=== PATIENT | male | born 1955 | race American Indian/Alaskan Native ===

== ENCOUNTER 2018-12-25 23:31 | Inpatient (IN) | payer SELFPAY ==
[~2018-12-25] VITALS: Ht 170.2 cm; Wt 120.3 kg
[2018-12-25] MEDS ORDERED: ONDANSETRON HCL 4MG/2ML INJ IV STA (23:36)
[2018-12-25] MEDS ORDERED: SODIUM CHLORIDE 0.9% 1,000 ML IV ONE (23:36)
[2018-12-25] MEDS ORDERED: MORPHINE SULFATE 4 MG/ML CPJ (NOT FOR IM USE) IV STA (23:36)
[2018-12-25] MEDS ORDERED: DILTIAZEM HCL 5MG/ML 5ML VIAL IV ONE (23:45)
[2018-12-26] VITALS (11 sets, daily range): BP systolic 2–140; BP diastolic 45–86
[2018-12-26] MEDS ORDERED: DILTIAZEM HCL 125 MG in DEXT 5% WATER 100 ML IV ONE ×2
[2018-12-26] MEDS ORDERED: DILTIAZEM HCL 5MG/ML 5ML VIAL IV ONE
[2018-12-26] MEDS ORDERED: DILTIAZEM HCL 125 MG in DEXT 5% WATER 100 ML IV NR (00:15)
[2018-12-26 00:28] LABS: CHLORIDE 102 mEq/L (98-107); HEMOGLOBIN. 10.5 g/dL (14.0-18.0); MEAN CORPUSCULAR VOLUME 87.4 fL (80.0-94.0); RED BLOOD CELL COUNT 3.68 mill/uL (4.7-6.1)
[2018-12-26] MEDS ORDERED: CEFTRIAXONE 1 G PREMIX 50 ML IV ONE (00:30)
[2018-12-26] MEDS ORDERED: AZITHROMYCIN 500 MG in DEXT 5% WATER 250 ML IV SCH (00:30)
[2018-12-26 00:31] LABS: INR 1.4; PARTIAL THROMBOPLASTIN TIME 28.2 sec (23.4-31.0); PROTHROMBIN TIME 13.9 sec (9.6-11.0)
[2018-12-26 00:42] LABS: HEMATOCRIT. 32.2 % (42.0-52.0); MEAN CORPUSCULAR HEMOGLOBIN 28.4 pg (28.0-32.0); MEAN PLATELET VOLUME 7.7 fl (7.4-10.4); PLATELET 126 x1000/uL (130-400); RED CELL DISTRIBUTION WIDTH 18.5 % (11.6-14.6)
[2018-12-26 00:49] LABS: PLATELET ESTIMATE NORMAL
[2018-12-26 02:00] LABS: CLARITY URINE CLEAR (CLEAR); COLOR URINE DARK YELLOW (YELLOW); KETONES URINE TRACE (NEGATIVE); LEUKOCYTE ESTERASE URINE NEGATIVE (NEGATIVE); NITRITE URINE NEGATIVE (NEGATIVE); OCCULT BLOOD URINE TRACE (NEGATIVE); PROTEIN URINE 1+ (NEGATIVE); SPECIFIC GRAVITY URINE 1.023 (1.005-1.030)
[2018-12-26] MEDS ORDERED: CLONIDINE 0.1MG TABLET PO PRN (04:45)
[2018-12-26] MEDS ORDERED: LORAZEPAM 2MG/ML CPJ IV PRN (04:45)
[2018-12-26] MEDS ORDERED: HYDRALAZINE 20MG/ML VIAL IV PRN (04:45)
[2018-12-26] MEDS ORDERED: DILTIAZEM HCL 125 MG in DEXT 5% WATER 100 ML IV PRN (04:45)
[2018-12-26] MEDS ORDERED: DIPHENHYDRAMINE 50MG/ML VIAL IV PRN (04:45)
[2018-12-26] MEDS ORDERED: MAGNESIUM/ALUMINUM HYDROXIDE/SIMETHICONE 30ML UDC PO PRN (04:45)
[2018-12-26] MEDS: ONDANSETRON HCL 4MG/2ML INJ IV PRN ×2 (05:07→19:29)
[2018-12-26] MEDS ORDERED: DEXT 5%/0.45% NACL 1000ML 1,000 ML IV SCH (06:00)
[2018-12-26] MEDS ORDERED: FUROSEMIDE 40MG/4ML VIAL IVP SCH (06:00)
[2018-12-26] MEDS ORDERED: ENOXAPARIN 30MG/0.3ML SYR SUBCUT SCH (09:00)
[2018-12-26] MEDS ORDERED: POTASSIUM CHLORIDE 20MEQ TABLET SR PO SCH (09:00)
[2018-12-26] MEDS: FAMOTIDINE 20MG/2ML VIAL IV SCH ×2 (09:33→21:10)
[2018-12-26] MEDS ORDERED: FUROSEMIDE 40MG/4ML VIAL IVP NR (11:00)
[2018-12-26] MEDS ORDERED: POTASSIUM CHLORIDE 20MEQ TABLET SR PO NR (11:00)
[2018-12-26] MEDS ORDERED: ENOXAPARIN 80MG/0.8ML SYR SUBCUT NR (11:00)
[2018-12-26] MEDS: LOSARTAN POTASSIUM 25 MG TABLET PO SCH (11:03)
[2018-12-26] MEDS: DILTIAZEM HCL 90MG TABLET NG SCH ×3 (11:04→23:56)
[2018-12-26 12:44] LABS: *AMPHETAMINES SCREEN URINE NEGATIVE (NEGATIVE); *BARBITURATES SCREEN URINE NEGATIVE (NEGATIVE); *BENZODIAZEPINES SCREEN URINE NEGATIVE (NEGATIVE); *COCAINE SCREEN URINE NEGATIVE (NEGATIVE)
[2018-12-26 12:45] LABS: CANNABINOID URINE SCREEN NEGATIVE (NEGATIVE); METHADONE URINE SCREEN NEGATIVE (NEGATIVE); OPIATES URINE SCREEN NEGATIVE (NEGATIVE); PHENCYCLIDINE URINE SCREEN NEGATIVE (NEGATIVE)
[2018-12-26] MEDS: FUROSEMIDE 40MG/4ML VIAL IVP SCH ×2 (17:19→21:24)
[2018-12-26] MEDS: POTASSIUM CHLORIDE 20MEQ TABLET SR PO SCH (21:09)
[2018-12-26] MEDS: ENOXAPARIN 100MG/ML SYR SUBCUT SCH (21:13)
[2018-12-26] MEDS: ACETAMINOPHEN 325MG TABLET PO PRN (21:34)
[2018-12-26] MEDS: GUAIFENESIN 200MG/10ML SUGAR FREE UDC PO PRN (23:57)
[2018-12-27] VITALS (14 sets, daily range): BP systolic 87–146; BP diastolic 44–70
[2018-12-27 06:00] LABS: CHLORIDE 100 mEq/L (98-107)
[2018-12-27] MEDS: DILTIAZEM HCL 90MG TABLET NG SCH ×4 (06:00→23:47)
[2018-12-27 06:09] LABS: LDL CHOLESTEROL 38 mg/dL (5-100)
[2018-12-27 06:16] LABS: HDL CHOLESTEROL 27 mg/dL (40-59)
[2018-12-27 06:34] LABS: HEMATOCRIT. 28.5 % (42.0-52.0); HEMOGLOBIN. 9.2 g/dL (14.0-18.0); MEAN CORPUSCULAR HEMOGLOBIN 28.5 pg (28.0-32.0); MEAN CORPUSCULAR VOLUME 87.7 fL (80.0-94.0); MEAN PLATELET VOLUME 7.6 fl (7.4-10.4); PLATELET 96 x1000/uL (130-400); RED BLOOD CELL COUNT 3.25 mill/uL (4.7-6.1); RED CELL DISTRIBUTION WIDTH 18.8 % (11.6-14.6)
[2018-12-27] MEDS: FUROSEMIDE 40MG/4ML VIAL IVP SCH ×2 (06:58→18:09)
[2018-12-27] MEDS: ACETAMINOPHEN 325MG TABLET PO PRN (08:36)
[2018-12-27] MEDS: POTASSIUM CHLORIDE 20MEQ TABLET SR PO SCH (08:36)
[2018-12-27] MEDS: FAMOTIDINE 20MG/2ML VIAL IV SCH ×2 (08:37→20:21)
[2018-12-27] MEDS: ENOXAPARIN 100MG/ML SYR SUBCUT SCH ×2 (08:37→20:36)
[2018-12-27] MEDS: LOSARTAN POTASSIUM 25 MG TABLET PO SCH (08:37)
[2018-12-27 10:21] LABS: PLATELET ESTIMATE DECREASED
[2018-12-27] MEDS: GUAIFENESIN 200MG/10ML SUGAR FREE UDC PO PRN ×2 (11:17→22:14)
[2018-12-27] MEDS: SPIRONOLACTONE 25MG TABLET PO SCH (12:32)
[2018-12-27 13:07] LABS: TOTAL IRON BINDING CAPACITY 374 ug/dL (250-450)
[2018-12-27 13:28] LABS: VITAMIN B12 SERUM 639 pg/mL (211-911)
[2018-12-28] VITALS (12 sets, daily range): BP systolic 93–136; BP diastolic 49–82
[2018-12-28] MEDS: HYDROCODONE/ACETAMINOPHEN 5/325MG TABLET PO PRN (04:59)
[2018-12-28] MEDS: DILTIAZEM HCL 90MG TABLET NG SCH ×4 (06:31→23:42)
[2018-12-28] MEDS: FUROSEMIDE 40MG/4ML VIAL IVP SCH ×2 (06:32→17:32)
[2018-12-28] MEDS: POTASSIUM CHLORIDE 20MEQ TABLET SR PO SCH ×3 (08:29→17:32)
[2018-12-28] MEDS: LOSARTAN POTASSIUM 25 MG TABLET PO SCH (08:29)
[2018-12-28] MEDS: SPIRONOLACTONE 25MG TABLET PO SCH (08:33)
[2018-12-28] MEDS: ENOXAPARIN 100MG/ML SYR SUBCUT SCH (08:33)
[2018-12-28] MEDS: FAMOTIDINE 20MG/2ML VIAL IV SCH (08:33)
[2018-12-28] MEDS: GUAIFENESIN 200MG/10ML SUGAR FREE UDC PO PRN ×2 (08:40→23:43)
[2018-12-28] MEDS ORDERED: METOLAZONE 5MG TABLET PO SCH (15:00)
[2018-12-28] MEDS ORDERED: SORBITOL 70% SOLN 30ML PO NR ×2 (16:00→20:00)
[2018-12-28 17:13] LABS: HEMATOCRIT. 29.7 % (42.0-52.0); HEMOGLOBIN. 9.6 g/dL (14.0-18.0); MEAN CORPUSCULAR HEMOGLOBIN 28.3 pg (28.0-32.0); MEAN CORPUSCULAR VOLUME 87.4 fL (80.0-94.0); MEAN PLATELET VOLUME 7.2 fl (7.4-10.4); PLATELET 127 x1000/uL (130-400); RED CELL DISTRIBUTION WIDTH 18.8 % (11.6-14.6)
[2018-12-28 17:18] LABS: CHLORIDE 93 mEq/L (98-107)
[2018-12-28] MEDS: FERROUS SULFATE 325MG TABLET PO SCH (17:32)
[2018-12-28 17:33] LABS: PLATELET ESTIMATE DECREASED
[2018-12-28] MEDS: PANTOPRAZOLE SODIUM 40 MG/VIAL IV SCH (20:30)
[2018-12-28] MEDS: ONDANSETRON HCL 4MG/2ML INJ IV PRN ×2 (21:03→23:42)
[2018-12-29] VITALS (11 sets, daily range): BP systolic 107–145; BP diastolic 51–84
[2018-12-29] MEDS: HYDROCODONE/ACETAMINOPHEN 5/325MG TABLET PO PRN (01:39)
[2018-12-29] MEDS: DILTIAZEM HCL 90MG TABLET NG SCH ×4 (06:21→23:35)
[2018-12-29] MEDS: FUROSEMIDE 40MG/4ML VIAL IVP SCH ×2 (06:21→18:08)
[2018-12-29 06:42] LABS: HEMOGLOBIN. 9.4 g/dL (14.0-18.0); MEAN CORPUSCULAR HEMOGLOBIN 28.9 pg (28.0-32.0); MEAN PLATELET VOLUME 7.1 fl (7.4-10.4); PLATELET 102 x1000/uL (130-400); RED BLOOD CELL COUNT 3.26 mill/uL (4.7-6.1); RED CELL DISTRIBUTION WIDTH 18.2 % (11.6-14.6)
[2018-12-29 06:51] LABS: CHLORIDE 91 mEq/L (98-107)
[2018-12-29] MEDS: FERROUS SULFATE 325MG TABLET PO SCH ×3 (07:03→18:06)
[2018-12-29] MEDS: SPIRONOLACTONE 25MG TABLET PO SCH (08:25)
[2018-12-29] MEDS: LOSARTAN POTASSIUM 25 MG TABLET PO SCH (08:25)
[2018-12-29] MEDS: POTASSIUM CHLORIDE 20MEQ TABLET SR PO SCH ×2 (08:25→18:06)
[2018-12-29] MEDS ORDERED: MAGNESIUM 2 G PREMIX 50 ML IV SCH (09:00)
[2018-12-29] MEDS ORDERED: KCL 20MEQ/100ML PREMIX 100 ML IV SCH (09:00)
[2018-12-29] MEDS ORDERED: METOLAZONE 10MG TABLET PO SCH (09:00)
[2018-12-29 10:01] LABS: INR 1.4; PARTIAL THROMBOPLASTIN TIME 30.6 sec (23.4-31.0); PROTHROMBIN TIME 13.9 sec (9.6-11.0)
[2018-12-29] MEDS: PANTOPRAZOLE SODIUM 40 MG/VIAL IV SCH ×2 (10:01→21:21)
[2018-12-29 12:06] LABS: PLATELET ESTIMATE DECREASED
[2018-12-29] MEDS ORDERED: FENTANYL CITRATE/PF 50MCG/ML 2ML VIAL ONE (15:20)
[2018-12-29] MEDS ORDERED: MIDAZOLAM HCL 5 MG/5 ML VIAL ONE (15:20)
[2018-12-29] MEDS ORDERED: SIMETHICONE 40 MG/0.6 ML 30ML ONE (15:20)
[2018-12-29] MEDS ORDERED: MIDAZOLAM HCL 5 MG/5 ML VIAL IV PRN (15:20)
[2018-12-29] MEDS ORDERED: SODIUM CHLORIDE 0.9% 10ML VIAL ONE (15:20)
[2018-12-29] MEDS ORDERED: FENTANYL CITRATE/PF 50MCG/ML 2ML VIAL IV PRN (15:20)
[2018-12-29 20:46] LABS: HEMATOCRIT. 30.9 % (42.0-52.0); HEMOGLOBIN. 10.2 g/dL (14.0-18.0); MEAN CORPUSCULAR HEMOGLOBIN 28.2 pg (28.0-32.0); MEAN CORPUSCULAR VOLUME 85.7 fL (80.0-94.0); MEAN PLATELET VOLUME 6.8 fl (7.4-10.4); PLATELET 98 x1000/uL (130-400); RED BLOOD CELL COUNT 3.61 mill/uL (4.7-6.1); RED CELL DISTRIBUTION WIDTH 18.3 % (11.6-14.6)
[2018-12-29 21:00] LABS: CHLORIDE 83 mEq/L (98-107)
[2018-12-29 21:05] LABS: PLATELET ESTIMATE DECREASED
[2018-12-29] MEDS: APIXABAN 5 MG TABLET PO SCH (21:21)
[2018-12-29 21:26] LABS: HEPATITIS B SURFACE ANTIGEN NEGATIVE
[2018-12-29 21:56] LABS: HEPATITIS A AB IGM NEGATIVE (NEGATIVE)
[2018-12-30] VITALS (15 sets, daily range): BP systolic 91–149; BP diastolic 43–95
[2018-12-30] MEDS ORDERED: POTASSIUM CHLORIDE 20MEQ/PACKET PO NR
[2018-12-30] MEDS: DILTIAZEM HCL 90MG TABLET NG SCH (06:06)
[2018-12-30 06:49] LABS: HEMATOCRIT. 28.8 % (42.0-52.0); HEMOGLOBIN. 9.5 g/dL (14.0-18.0); MEAN CORPUSCULAR HEMOGLOBIN 28.2 pg (28.0-32.0); MEAN CORPUSCULAR VOLUME 85.4 fL (80.0-94.0); MEAN PLATELET VOLUME 7.1 fl (7.4-10.4); PLATELET 92 x1000/uL (130-400); RED BLOOD CELL COUNT 3.37 mill/uL (4.7-6.1); RED CELL DISTRIBUTION WIDTH 18.4 % (11.6-14.6)
[2018-12-30 07:39] LABS: CHLORIDE 83 mEq/L (98-107)
[2018-12-30] MEDS: LOSARTAN POTASSIUM 25 MG TABLET PO SCH (07:50)
[2018-12-30] MEDS: SPIRONOLACTONE 25MG TABLET PO SCH (07:50)
[2018-12-30] MEDS: POTASSIUM CHLORIDE 20MEQ TABLET SR PO SCH ×2 (07:50→17:15)
[2018-12-30] MEDS: APIXABAN 5 MG TABLET PO SCH (07:50)
[2018-12-30] MEDS: FERROUS SULFATE 325MG TABLET PO SCH ×3 (07:50→17:15)
[2018-12-30 10:00] LABS: PLATELET ESTIMATE DECREASED
[2018-12-30] MEDS ORDERED: MAGNESIUM SULFATE 3 GM in DEXT 5% WATER 96 ML IV SCH (10:00)
[2018-12-30] MEDS: PROPRANOLOL HCL 10MG TABLET PO SCH (10:15)
[2018-12-30 11:13] LABS: BG BASE EXCESS 17.1 mmol/L (-2.0-2.0); BG CARBOXYHEMOGLOBIN 0.9 % (0.5-1.5); BG DEOXYHEMOGLOBIN 5.4 % (0.0-5.0); BG FRACTION INSPIRED OXYGEN 30; BG HCO3 ACT 43.9 mmol/L (22.0-26.0); BG METHEMOGLOBIN 0.3 % (0.0-1.5); BG OXYGEN SATURATION 94.5 % (92.0-98.5); BG OXYHEMOGLOBIN 93.4 % (94.0-97.0); BG PH 7.454 (7.350-7.450); BG PO2 73.2 mmHg (75.0-100.0); BG SAMPLE SITE LEFT BRACHIAL; BG TOTAL HEMOGLOBIN 11.4 g/dL (12.0-18.0); BG VENT MODE NASAL CANNULA
[2018-12-30] MEDS: DILTIAZEM HCL 60MG TABLET NG SCH ×2 (12:00→17:15)
[2018-12-30] MEDS: ONDANSETRON HCL 4MG/2ML INJ IV PRN (15:35)
[2018-12-31] VITALS (9 sets, daily range): BP systolic 89–133; BP diastolic 35–77
[2018-12-31] MEDS: DILTIAZEM HCL 60MG TABLET NG SCH ×3 (00:09→08:39)
[2018-12-31] MEDS: HYDROCODONE/ACETAMINOPHEN 5/325MG TABLET PO PRN (00:16)
[2018-12-31 05:58] LABS: CHLORIDE 87 mEq/L (98-107)
[2018-12-31 06:19] LABS: EOSINOPHILS % 9.2 % (0.0-5.0); HEMOGLOBIN. 9.9 g/dL (14.0-18.0); LYMPHOCYTES % 35.7 % (20.0-50.0); MEAN CORPUSCULAR HEMOGLOBIN 28.3 pg (28.0-32.0); MEAN CORPUSCULAR VOLUME 85.5 fL (80.0-94.0); MEAN PLATELET VOLUME 7.2 fl (7.4-10.4); MONOCYTES % 14.5 % (2.0-8.0); NEUTROPHILS % 39.6 % (40.0-76.0); PLATELET 94 x1000/uL (130-400); RED BLOOD CELL COUNT 3.51 mill/uL (4.7-6.1); RED CELL DISTRIBUTION WIDTH 18.3 % (11.6-14.6)
[2018-12-31] MEDS: SPIRONOLACTONE 25MG TABLET PO SCH (08:33)
[2018-12-31] MEDS: LOSARTAN POTASSIUM 25 MG TABLET PO SCH (08:36)
[2018-12-31] MEDS: PROPRANOLOL HCL 10MG TABLET PO SCH (08:38)
[2018-12-31] MEDS: FERROUS SULFATE 325MG TABLET PO SCH ×2 (08:38→12:50)
[2018-12-31] MEDS: POTASSIUM CHLORIDE 20MEQ TABLET SR PO SCH (08:38)
[2018-12-31 09:17] LABS: BG BASE EXCESS 13.2 mmol/L (-2.0-2.0); BG DEOXYHEMOGLOBIN 8.1 % (0.0-5.0); BG FRACTION INSPIRED OXYGEN 21; BG HCO3 ACT 38.9 mmol/L (22.0-26.0); BG METHEMOGLOBIN 0.3 % (0.0-1.5); BG OXYGEN SATURATION 91.8 % (92.0-98.5); BG OXYHEMOGLOBIN 90.6 % (94.0-97.0); BG PCO2 55.2 mmHg (35.0-45.0); BG PH 7.466 (7.350-7.450); BG PO2 62.6 mmHg (75.0-100.0); BG SAMPLE SITE RIGHT RADIAL; BG TOTAL HEMOGLOBIN 11.4 g/dL (12.0-18.0); BG VENT MODE ROOM AIR
[2018-12-31] MEDS ORDERED: SIMETHICONE 80MG TABLET CHEW PO PRN (11:15)
[2018-12-31] MEDS ORDERED: PHENYLEPHRINE/SHK LV/MO/PET,WH RECTAL OINT 28GM PR PRN (13:00)
== END 2018-12-31 17:20 | disposition home or self-care (01) | DRG 194 ==
LOC: ER 23:31 → 3WST 12-26 01:14 → EDBEDREQ 12-26 01:16 → CANRESERV 12-26 01:49 → ENRESERV 12-26 01:49 → EDBEDREQ 12-26 02:50 → EDBEDREQSVC 12-26 02:50 → ENRESERV 12-26 03:18
PROVIDERS: ADMIT Internal Medicine; ATTEND Internal Medicine
PROC: 0DJ08ZZ Inspection of Upper Intestinal Tract, Via Natural or Artificial Opening Endoscopic (ICD-10-PCS; principal; 2018-12-29)
PROC: 0DJD8ZZ Inspection of Lower Intestinal Tract, Via Natural or Artificial Opening Endoscopic (ICD-10-PCS; 2018-12-29)
DX: I11.0 Hypertensive heart disease with heart failure (principal); D61.818 Other pancytopenia; E87.3 Alkalosis; J91.8 Pleural effusion in other conditions classified elsewhere; E46 Unspecified protein-calorie malnutrition; D68.4 Acquired coagulation factor deficiency; D69.59 Other secondary thrombocytopenia; E83.42 Hypomagnesemia; I48.91 Unspecified atrial fibrillation; B18.2 Chronic viral hepatitis C; I50.43 Acute on chronic combined systolic (congestive) and diastolic (congestive) heart failure; D50.9 Iron deficiency anemia, unspecified; E66.9 Obesity, unspecified; E87.6 Hypokalemia; I25.10 Atherosclerotic heart disease of native coronary artery without angina pectoris; I85.00 Esophageal varices without bleeding; K29.70 Gastritis, unspecified, without bleeding; K44.9 Diaphragmatic hernia without obstruction or gangrene; K74.60 Unspecified cirrhosis of liver; R18.8 Other ascites; E88.09 Other disorders of plasma-protein metabolism, not elsewhere classified; K64.8 Other hemorrhoids; Z91.14 Patient's other noncompliance with medication regimen; Z79.899 Other long term (current) drug therapy
CPT/HCPCS: 36415; 36600; 71045; 76700; 76705; 80048; 80061; 80305; 81003; 82105; 82270; 82375; 82607; 82728; 82805; 83540; 83550; 83605; 83735; 83880; 84443; 84484; 85044; 86705; 86709; 86803; 87340; 93005; 93306; 93970; 96374; 97110; 97116; 97162; 99285; C9113; J0456; J0696; J1650; J1940; J2250; J2270; J2405; J3010; J3475; J3480; J3490; J7030; J7060